=== PATIENT | female | born 1945 | race Caucasian/White ===

== ENCOUNTER 2022-01-06 10:51 | Emergency (ER) | payer OTHER, SELFPAY ==
--- NOTE | 2022-01-06 12:43 | ER ---
Nurse's Notes [facility] Name: Norma Wilkins Age: 76 yrs Sex: Female : 1945 Arrival Date: 01/06/2022 Time: 10:54 Bed 9 Private MD: Diagnosis: Sciatica Presentation: 01/06 11:14 Chief complaint: Patient states: she is having a lot of lower back pain for approx a ap3 month. Patient states she has been evaluated by JESSICA and Mary but hasn't been able to get an MRI to see why she is having this kind of pain. Coronavirus screen: At this time, the client does not indicate any symptoms associated with coronavirus-19. Ebola Screen: No symptoms or risks identified at this time. Initial Sepsis Screen: Does the patient meet any 2 criteria? No. Patient's initial sepsis screen is negative. Does the patient have a suspected source of infection? No. Patient's initial sepsis screen is negative. Risk Assessment: Do you want to hurt yourself or someone else? Patient reports no desire to harm self or others. Onset of symptoms was November 2021. 11:14 Method Of Arrival: Ambulatory ap3 11:14 Acuity: AMARA 4 ap3 Triage Assessment: 11:20 General: Appears uncomfortable, Behavior is calm. Pain: Complains of pain in low back ap3 area Pain radiates to left leg. Neuro: Level of Consciousness is awake, alert, obeys commands, Oriented to person, place, time, situation, Gait is steady. Cardiovascular: Patient's skin is warm and dry. Respiratory: Airway is patent Respiratory effort is even, unlabored. Musculoskeletal: Range of motion: intact in all extremities. Historical: - Allergies: 11:16 PENICILLINS; ap3 - Home Meds: 11:16 Lisinopril Oral [Active]; atorvastatin oral [Active]; levothyroxine oral [Active]; ap3 amlodipine [Active]; Atenolol Oral [Active]; - PMHx: 11:16 Hypertensive disorder; Hypothyroidism; Hypercholesterolemia; ap3 - Immunization history:: Client reports having NOT received the Covid vaccine. - Social history:: Smoking status: Patient denies any tobacco usage or history of. Screenin:21 Abuse screen: Denies threats or abuse. Nutritional screening: No deficits noted. ap3 Tuberculosis screening: No symptoms or risk factors identified. 12:28 Fall Risk No fall in past 12 months (0 pts). No secondary diagnosis (0 pts). No IV (0 kb3 pts). Ambulatory Aid- Furniture (30 pts.). Gait- Impaired (20 pts.). Mental Status- Oriented to own ability (0 pts). Total Ng Fall Scale indicates High Risk Score (45 or more points). Fall prevention measures have been instituted. Side Rails Up X 2 Family Present and informed to notify staff if the need to leave the bedside As available patient and family educated on Fall Prevention Program and Strategies. Assessment: 12:23 General: Received care of pt from sarah via . PT is AAO x4. Reports left lower back kb3 pain that radiates down her left leg for 5-6 weeks. Pt reports she has seen here PCP, [facility] x2 and [place] [facility] but back pain continues. Pt has been unable to find a "back doctor" in the [place] area to follow up with. . Neuro: No deficits noted. Musculoskeletal: Tenderness present in left low back radiates down left leg. 12:29 Neuro: Denies dizziness, numbness headache. kb3 Vital Signs: 11:14 BP 148 / 80; Pulse 63; Resp 18; Temp 97.9(O); Pulse Ox 100% ; Weight 72.57 kg; Height 5 ap3 ft. 5 in. (165.10 cm); Pain 8/10; 12:28 BP 143 / 71; Pulse 54; Resp 20; Pulse Ox 100% ; Pain 8/10; kb3 11:14 Body Mass Index 26.63 (72.57 kg, 165.10 cm) ap3 ED Course: 10:54 Patient arrived in ED. as 11:16 Triage completed. ap3 11:21 Arm band placed on right wrist. ap3 11:33 Timi Vega PA is PHCP. [facility] 11:33 Brady Saucedo MD is Attending Physician. [facility] 12:06 Annmarie Wheeler, SAE is Primary Nurse. kb3 12:28 Patient has correct armband on for positive identification. Bed in low position. Call kb3 light in reach. Side rails up X 1. 12:28 No provider procedures requiring assistance completed. kb3 13:05 Patient did not have IV access during this emergency room visit. kb3 Administered Medications: No medications were administered Medication: 12:28 VIS not applicable for this client. kb3 Outcome: 12:43 Discharge ordered by MD. garay 13:05 Discharged to home via wheelchair. kb3 13:05 Condition: stable 13:05 Discharge instructions given to patient, family, Instructed on discharge instructions, follow up and referral plans. medication usage, Demonstrated understanding of instructions, follow-up care, medications, Prescriptions given X 2. 13:05 Patient left the ED. kb3 Signatures: Timi Vega PA PA jmm Martinez, Amelia as Prokisch, Amanda, RN RN ap3 Annmarie Wheeler, RN RN kb3
--- NOTE | 2022-01-06 12:44 | EDPHYS ---
Physician Documentation [facility] Name: Norma Wilkins Age: 76 yrs Sex: Female : 1945 Arrival Date: 01/06/2022 Time: 10:54 Bed 9 Private MD: ED Physician Brady Saucedo HPI: 01/06 12:40 This 76 yrs old Female presents to ER via Ambulatory with complaints of Back Pain. jmm 12:40 The patient presents with pain that is acute. Onset: The symptoms/episode jmm began/occurred acutely, 1 month(s) ago. This is a 76-year-old female with history of hypertension, hypothyroidism and hyperlipidemia the presents emerged department with complaints of lower back pain radiating to the left leg. Symptoms initially occurred a month ago when the patient stood up out of a chair. Patient states now having intermittent pain. Pain worsened yesterday. Denies any numbness. Denies any bowel or bladder issues. Denies weakness.. Historical: - Allergies: 11:16 PENICILLINS; ap3 - Home Meds: 11:16 Lisinopril Oral [Active]; atorvastatin oral [Active]; levothyroxine oral [Active]; ap3 amlodipine [Active]; Atenolol Oral [Active]; - PMHx: 11:16 Hypertensive disorder; Hypothyroidism; Hypercholesterolemia; ap3 - Immunization history:: Client reports having NOT received the Covid vaccine. - Social history:: Smoking status: Patient denies any tobacco usage or history of. ROS: 12:40 Constitutional: Negative for fever, chills, and weight loss, Cardiovascular: Negative jmm for chest pain, palpitations, and edema, Respiratory: Negative for shortness of breath, cough, wheezing, and pleuritic chest pain. 12:40 Back: Positive for pain with movement. 12:40 All other systems are negative. Exam: 12:40 Constitutional: This is a well developed, well nourished patient who is awake, alert, jmm and in no acute distress. Head/Face: atraumatic. Eyes: EOMI, no conjunctival erythema appreciated ENT: Moist Mucus Membranes Neck: Trachea midline, Supple Chest/axilla: Normal chest wall appearance and motion. Cardiovascular: Regular rate and rhythm. No edema appreciated Respiratory: Normal respirations, no respiratory distress appreciated Abdomen/GI: Non distended 12:40 Skin: General appearance color normal MS/ Extremity: Moves all extremities, no obvious deformities appreciated, no edema noted to the lower extremities Neuro: Awake and alert 12:40 Back: pain, that is mild, of the left low back. 12:40 Neuro: extensor hallucis longus intact bilaterally. 12:40 Psych: Behavior/mood is pleasant, cooperative. Vital Signs: 11:14 BP 148 / 80; Pulse 63; Resp 18; Temp 97.9(O); Pulse Ox 100% ; Weight 72.57 kg; Height 5 ap3 ft. 5 in. (165.10 cm); Pain 8/10; 12:28 BP 143 / 71; Pulse 54; Resp 20; Pulse Ox 100% ; Pain 8/10; kb3 11:14 Body Mass Index 26.63 (72.57 kg, 165.10 cm) ap3 MDM: 12:22 [facility] medically screened. [facility] 12:42 Data reviewed: vital signs, nurses notes. Counseling: I had a detailed discussion with padmini the patient and/or guardian regarding: the historical points, exam findings, and any diagnostic results supporting the discharge/admit diagnosis, lab results, the need for outpatient follow up, to return to the emergency department if symptoms worsen or persist or if there are any questions or concerns that arise at home. ED course: Patient is alert. I do not suspect cord compression or cauda equina. Patient advised follow-up PCP and otherwise given strict return precautions. Patient understood and agrees plan of care. Patient is alert and appearance in the ED.. Administered Medications: No medications were administered Disposition: 13:24 Co-signature as Attending Physician, Brady Saucedo MD I agree with the assessment and kdr plan of care. Disposition Summary: 01/06/22 12:43 Discharge Ordered [facility] Condition: Stable [facility] Diagnosis - [facility]atica [facility] - With: Private Physician - When: 2 - 3 days - Reason: Recheck today's complaints, Continuance of care, Re-evaluation by your physician Discharge Instructions: - Discharge Summary Sheet [facility] - [facility]a [facility] Forms: - Medication Reconciliation Form [facility] - Thank You Letter [facility] - Antibiotic Education [facility] - Prescription Opioid Use [facility] Prescriptions: - Zanaflex 4 mg Oral Tablet - take 1 tablet by ORAL route every 8 hours As needed; 20 tablet; Refills: 0, jmm Product Selection Permitted - Medrol (Mo) 4 mg Oral Tablets, Dose Pack - take 1 tablet by ORAL route as directed - follow package instructions; 1 jmm packet; Refills: 0, Product Selection Permitted Signatures: Brady Saucedo MD MD kdr Mickail, Joel, PA PA jmm Prokisch, Amanda, RN RN ap3
[2022-01-06 13:46] VITALS: TEMP 97.9; O2SAT 100
[2022-01-06 13:49] VITALS: BP 143/71
== END 2022-01-06 13:05 | disposition home or self-care (01) ==
LOC: ER 10:51
DX: M54.32 Sciatica, left side (principal); I10 Essential (primary) hypertension; E03.9 Hypothyroidism, unspecified; Z88.0 Allergy status to penicillin

== ENCOUNTER 2024-04-25 13:45 | Emergency (ER) | payer OTHER ==
[2024-04-25] MEDS ORDERED: methocarbamoL 500 MG TAB ONE (14:12)
[2024-04-25] MEDS ORDERED: ACETAMINOPHEN 500 MG TAB ONE (14:12)
--- NOTE | 2024-04-25 14:50 | RAD REPORT ---
EXAMINATION: XR LEFT SHOULDER CLINICAL INDICATION: Female, 79 years old. L proximal humerus pain TECHNIQUE: Multiple views of the left shoulder were obtained. COMPARISON: 02/12/2016 FINDINGS: Comminuted fracture of the proximal left humerus is seen with moderate displacement. Calcif ied pleural plaques on the left.
--- NOTE | 2024-04-25 14:57 | ER ---
Nurse's Notes [facility] Name: Norma Wilkins Age: 79 yrs Sex: Female : 1945 Arrival Date: 04/25/2024 Time: 13:45 Bed 5 Private MD: Diagnosis: Fracture of upper end of humerus Presentation: 04/25 14:07 Chief complaint: Patient states: Fell last night going to bathroom. L shoulder pain ll1 since. No head injury or LOC. Coronavirus screen: Client denies travel out of the [place] in the last 14 days. At this time, the client does not indicate any symptoms associated with coronavirus-19. Ebola Screen: Patient denies travel to an Ebola-affected area in the 21 days before illness onset. Initial Sepsis Screen: Does the patient meet any 2 criteria? No. Patient's initial sepsis screen is negative. Does the patient have a suspected source of infection? No. Patient's initial sepsis screen is negative. Risk Assessment: Do you want to hurt yourself or someone else? Patient reports no desire to harm self or others. Onset of symptoms was April 24, 2024. 14:07 Method Of Arrival: Ambulatory ll1 14:07 Acuity: AMARA 4 ll1 Triage Assessment: 14:08 General: Appears uncomfortable, Behavior is calm, cooperative, appropriate for age. ll1 Pain: Complains of pain in L shoulder. Musculoskeletal: Reports pain in L shoulder. Historical: - Allergies: 14:00 PENICILLINS; ll1 - PMHx: 14:00 Hypercholesterolemia; Hypertensive disorder; Hypothyroidism; ll1 - Immunization history:: Adult Immunizations up to date. - Social history:: Smoking status: Patient denies any tobacco usage or history of. Screenin:09 [facility] ED Fall Risk Assessment (Adult) History of falling in the last 3 months, jb4 including since admission Yes- single mechanical fall (1 pt) Confusion or Disorientation No (0 pts) Intoxicated or Sedated No (0 pts) Impaired Gait No (0 pts) Mobility Assist Device Used No (0 pt) Altered Elimination No (0 pt) Score/Fall Risk Level 0 - 2 = Low Risk Oriented to surroundings, Maintained a safe environment. Abuse screen: Denies threats or abuse. Nutritional screening: No deficits noted. Tuberculosis screening: No symptoms or risk factors identified. Assessment: 15:09 Reassessment: Patient appears in no apparent distress at this time. Patient and/or jb4 family updated on plan of care and expected duration. Pain level reassessed. Patient is alert, oriented x 3, equal unlabored respirations, skin warm/dry/pink. Patient states feeling better. Vital Signs: 14:07 BP 139 / 79; Pulse 55; Resp 16; Temp 97.9; Pulse Ox 98% ; Weight 63.5 kg; Height 5 ft. ll1 5 in. ; Pain 10/10; 14:07 Body Mass Index 23.30 (63.50 kg, 165.1 cm) ll1 14:07 Pain Scale: Adult ll1 ED Course: 13:50 Patient arrived in ED. sj2 13:56 Saul Lemos MD is Attending Physician. ec2 14:01 Arm band placed on. ll1 14:08 Triage completed. ll1 14:40 Shoulder Left (2 View) XRAY In Process Unspecified. EDMS 14:43 Patient placed in an exam room, on a stretcher. ll1 14:56 Sky De La Garza MD is Referral Physician. ec2 15:09 Noah Concepcion, SAE is Primary Nurse. bp 15:09 Patient has correct armband on for positive identification. Bed in low position. Call jb4 light in reach. Side rails up X 1. Provided Education on: discharge instructions. 15:09 No provider procedures requiring assistance completed. Patient did not have IV access jb4 during this emergency room visit. Administered Medications: 14:13 Drug: Methocarbamol PO 500 mg PO once Route: PO; ll1 14:14 Drug: Acetaminophen PO 1000 mg PO once Route: PO; ll1 Medication: 15:09 VIS not applicable for this client. jb4 Outcome: 14:56 Discharge ordered by . ec2 15:09 Discharged to home ambulatory, jb4 15:09 Condition: stable 15:09 Discharge instructions given to patient, Instructed on discharge instructions, follow up and referral plans. no drinking with medication, no driving heavy equipment, medication usage, Demonstrated understanding of instructions, follow-up care, medications, Prescriptions given X 1, 15:11 Patient left the ED. jb4 Signatures: Dispatcher [facility] Usman Rachel RN RN jb4 Noah Concepcion RN RN bp Lewis, Lynsay, RN RN ll1 Saul Lemos MD MD ec2 Marta Garcia 2
--- NOTE | 2024-04-25 14:57 | EDPHYS ---
Physician Documentation [facility] Name: Norma Wilkins Age: 79 yrs Sex: Female : 1945 Arrival Date: 04/25/2024 Time: 13:45 Bed 5 Private MD: ED Physician Saul Lemos HPI: 04/25 14:12 This 79 yrs old Female presents to ER via Ambulatory with complaints of Fall ec2 Injury, Shoulder Pain. 14:12 Patient arrives today for evaluation of left shoulder pain. Reports that she tripped ec2 and fell last night. No LOC, no head or neck pain. Not on blood thinners.. Historical: - Allergies: 14:00 PENICILLINS; ll1 - PMHx: 14:00 Hypercholesterolemia; Hypertensive disorder; Hypothyroidism; ll1 - Immunization history:: Adult Immunizations up to date. - Social history:: Smoking status: Patient denies any tobacco usage or history of. ROS: 14:12 Constitutional: as per hpi ec2 Exam: 14:12 Constitutional: GEN: NAD Head: atraumatic Eyes: EOMI Ears: External ears are ec2 normal. CV: regular rate LUNGS: no respiratory distress ABD: non-distended SKIN: no evidence of rashes MSK: Left upper extremity with TTP to the proximal humerus, intact distal neurovascular status. Vital Signs: 14:07 BP 139 / 79; Pulse 55; Resp 16; Temp 97.9; Pulse Ox 98% ; Weight 63.5 kg; Height 5 ft. ll1 5 in. ; Pain 10/10; 14:07 Body Mass Index 23.30 (63.50 kg, 165.1 cm) ll1 14:07 Pain Scale: Adult ll1 MDM: 14:04 Medical Screening Exam initiated ec2 14:12 Data reviewed: vital signs, nurses notes. ED course: Patient arrives today for left ec2 shoulder pain. Examination revealing for left shoulder findings as above. Will obtain radiograph of the left shoulder, place in sling, give Tylenol and ibuprofen. Differential includes contusion, fracture, dislocation. 14:47 ED course: Shoulder x-ray independently reviewed and interpreted by me, shows proximal ec2 humerus fracture with significant displacement. Patient with intact distal neurovascular status, will place in sling, have patient follow-up with orthopedic surgery and prescribed pain medications. Return precautions given.. 04/25 14:11 Order name: Shoulder Left (2 View) XRAY; Complete Time: 14:50 ec2 04/25 14:11 Order name: Sling; Complete Time: 14:14 ec2 Administered Medications: 14:13 Drug: Methocarbamol PO 500 mg PO once Route: PO; ll1 14:14 Drug: Acetaminophen PO 1000 mg PO once Route: PO; ll1 Disposition Summary: 04/25/24 14:56 Discharge Ordered Notes: Location: Home ec2 Condition: Stable ec2 Diagnosis - Fracture of upper end of humerus ec2 Followup: ec2 - With: Sky De La Garza MD - When: - Reason: Recheck today's complaints Discharge Instructions: - Discharge Summary Sheet ec2 - Humerus Fracture Treated With Immobilization, [id number] ec2 Forms: - Medication Reconciliation Form ec2 - Antibiotic Education ec2 - Prescription Opioid Use ec2 - Patient Portal Instructions ec2 - Leadership Thank You Letter ec2 Prescriptions: - acetaminophen-codeine 300-30 mg Oral tablet - take 1 tablet ORAL route every 4 hours; 15 tablet; Refills: 0, Product ec2 Selection Permitted Signatures: Dispatcher [employer] Marilyn Pearce RN RN ll1 Saul Lemos MD MD ec2 Corrections: (The following items were deleted from the chart) 14:12 14:12 Shoulder Left 2 View+[email or web address] ordered. SONAL PRUITT
[2024-04-25 15:15] VITALS: BP 139/79; TEMP 97.9; O2SAT 98
== END 2024-04-25 15:11 | disposition home or self-care (01) ==
LOC: ER 13:45
DX: S42.202A Unspecified fracture of upper end of left humerus, initial encounter for closed fracture (principal); W01.0XXA Fall on same level from slipping, tripping and stumbling without subsequent striking against object, initial encounter
CPT/HCPCS: 99283